=== PATIENT | female | born 1985 | race Caucasian/White ===

== ENCOUNTER 2020-01-12 14:28 | Emergency (ER) | payer BC, OTHER ==
[~2020-01-12] VITALS: Ht 157.5 cm; Wt 68.0 kg
[2020-01-12 14:36] VITALS: BP 128/83
[2020-01-12 15:34] LABS: Basophils # (auto) 0.1 uL; Basophils % (auto) 0.4 % (0.0-2.0); Eosinophils # (auto) 0.2 uL; Eosinophils % (auto) 1.7 % (0.0-7.0); Hematocrit 41.6 % (36.0-46.0); Lymphocytes % (auto) 14.5 % (10.0-50.0); Mean Corpuscular Hemoglobin 30.3 pg (28.0-32.0); Mean Corpuscular Hgb Conc. 33.7 g/dL (32.0-36.0); Mean Corpuscular Volume 90.1 fL (80.0-100.0); Monocytes # (auto) 0.7 uL; Monocytes % (auto) 5.3 % (0.0-12.0); Neutrophils # (auto) 10.5 uL; Neutrophils % (auto) 78.1 % (37.0-80.0); Platelet Count (auto) 324 10^3/uL (140-450); Red Blood Cells 4.62 10^6/uL (4.0-5.20); Red Cell Distribution Width 12.5 % (11.8-14.3); White Blood Cell 13.5 10^3/uL (4.4-10.8)
[2020-01-12 18:32] LABS: Urine Bacteria NONE SEEN /hpf (None Seen); Urine Blood TRACE /uL (Negative); Urine Specific Gravity 1.014 (1.001-1.035); Urine WBC 1 /hpf (0 - 5)
[2020-01-12 18:41] LABS: Albumin 3.5 g/dL (3.4-5.0); BUN/Creatinine Ratio 12.5; Calcium 8.5 mg/dL (8.5-10.1); Potassium 4.2 mmol/L (3.5-5.1)
[2020-01-12 18:44] LABS: Bilirubin, Total 0.2 mg/dL (0.2-1.0); Total Protein 7.9 g/dL (6.4-8.2)
[2020-01-12 18:47] LABS: INR 0.89 (0.9-1.15); Partial Thromboplastin Time 27.1 sec (23.64-32.05)
== END 2020-01-12 19:57 | disposition left against medical advice (07) ==
LOC: ER 14:35
DX: O20.0 Threatened abortion (principal); Z3A.01 Less than 8 weeks gestation of pregnancy
CPT/HCPCS: 36415; 76801; 80053; 81001; 84702; 85025; 85610; 85730